=== PATIENT | male | born 1955 | race Hispanic/Latino ===

== ENCOUNTER 2017-05-22 14:34 | Inpatient (IN) | payer BC, OTHER ==
--- NOTE | 2017-05-22 15:03 | ED PDOC ---
HPI: Male Pain Time Seen by Provider: 05/22/17 14:42 Chief Complaint (Nursing): Groin Pain Chief Complaint (Provider): Groin Pain History Per: Patient History/Exam Limitations: no limitations Onset/Duration Of Symptoms: Days (x2 weeks) Current Symptoms Are (Timing): Better Additional Complaint(s): Pedro Forrest is a 61 year old male with previous medical history of diabetes and hypertension, who presents to the emergency department for an evaluation of a bump associated with pain between his testes and rectum ongoing for 2 weeks. Patient stated bump had gotten bigger until bump had drained itself 2-3 days ago. Denied any fever or chills. Of note, patient had a previous pilonidal abscess removed 2 years ago. PMD: Alistair Verduzco MD Past Medical History Reviewed: Historical Data, Nursing Documentation, Vital Signs Vital Signs: Last Vital Signs Temp 98.2 F 05/22/17 14:36 Pulse 83 05/22/17 14:36 Resp 16 05/22/17 14:36 BP 119/64 05/22/17 14:36 Pulse Ox 100 05/22/17 14:36 - Medical History PMH: Diabetes, HTN - Family History Family History: States: Unknown Family Hx - Home Medications Home Medications: Ambulatory Orders Medication Instructions Recorded Atorvastatin [Lipitor] 40 mg PO DAILY 05/22/17 Enalapril Maleate [Vasotec] 2.5 mg PO DAILY 05/22/17 Fluticasone/Salmeterol 250/50 1 puff INH Q12 05/22/17 [Advair Diskus 250/50] Glipizide [Glucotrol] 10 mg PO BID 05/22/17 Insulin Detemir [Levemir] 20 units SQ QAM 05/22/17 MetFORMIN [glucoPHAGE] 1,000 mg PO BID 05/22/17 - Allergies Allergies/Adverse Reactions: Allergies Allergy/AdvReac Type Severity Reaction Status Date / Time No Known Allergies Allergy Verified 05/22/17 14:36 Review of Systems ROS Statement: Except As Marked, All Systems Reviewed And Found Negative Constitutional: Negative for: Fever, Chills Genitourinary Male: Positive for: Other (bump between testes and rectum associated with pain) Physical Exam - Reviewed Nursing Documentation Reviewed: Yes Vital Signs Reviewed: Yes - Physical Exam Appears: Positive for: Well, Non-toxic, No Acute Distress Head Exam: Positive for: ATRAUMATIC, NORMAL INSPECTION, NORMOCEPHALIC Cardiovascular/Chest: Positive for: Regular Rate, Rhythm. Negative for: Chest Non Tender Respiratory: Positive for: Normal Breath Sounds. Negative for: Respiratory Distress Male Genital Exam: Positive for: erythema (and induration of perineum extending to posterior right-sided rectum). Negative for: normal genitalia, lesions (or abscess), other (fluctuation; active drainage) Extremity: Positive for: Normal ROM Neurologic/Psych: Positive for: Alert, hoistman II-XII, Oriented - Laboratory Results Result Diagrams: 05/22/17 15:25 05/22/17 15:25 - ECG O2 Sat by Pulse Oximetry: 100 (RA) Pulse Ox Interpretation: Normal Medical Decision Making Medical Decision Making: Initial Impression: Cellulitis; Pilonidal abscess Initial Plan: * CT pelvis with IV contrast * Labs * Urine dipstick * PTT * PaT * Toradol 15mg IV * Vancomycin 250ml IVPB * Blood culture * Accucheck * Urinalysis Time: 1847 --CT pelvis FINDINGS: Bowel: There is a nonobstructive gas pattern in the pelvis. Appendix and terminal ileum are unremarkable. There is scattered diverticulosis. Appendix: See stomach and bowel Intraperitoneal space: There is no free air or free fluid. Bladder: bladder is partially distended. There is mild bladder wall thickening. Reproductive: Prostate is enlarged. Seminal vesicles are unremarkable. Bones/joints: There are degenerative changes in the osseus structures. There is a small cortical medullary renal lesion in the right ilium difficult to further characterize. There is a bone island in the right pubis. Soft tissues: There is soft tissue swelling in the medial aspect of the right buttock beginning in the efraín-rectal region and extending inferiorly. There is skin thickening and enhancement. There is a small low attenuation lesion, 1.8 x 1.4 cm suggesting early abscess, image 120 series 2. Vasculature: There are vascular calcifications. Lymph nodes: There is no pathologic adenopathy. IMPRESSION: Medial right buttock and efraín-rectal inflammation with small early abscess Scribe Attestation: Documented by Abigail Batista, acting as a scribe for Sumaya Lamb MD Provider Scribe Attestation: All medical record entries made by the Scribe were at my direction and personally dictated by me. I have reviewed the chart and agree that the record accurately reflects my personal performance of the history, physical exam, medical decision making, and the department course for this patient. I have also personally directed, reviewed, and agree with the discharge instructions and disposition. Disposition - Clinical Impression Clinical Impression: Perirectal cellulitis, Perirectal cellulitis, Perirectal abscess - Patient ED Disposition Is Patient to be Admitted: Yes - Disposition Disposition Time: 18:54 ( ) Condition: STABLE - Pt Status Changed To: Hospital Disposition Of: Inpatient - Admit Certification Admit to Inpatient:: After my assessment, the patient will require hospitalization for at least two midnights. This is because of the severity of symptoms shown, intensity of services needed, and/or the medical risk in this patient being treated as an outpatient. - POA Present On Arrival: Poor Glycemic Control
[2017-05-22] MEDS ORDERED: Vancomycin 1 g Inj ONE (15:33)
[2017-05-22 15:40] LABS: BASO # 0.1 K/uL (0.0-0.2); BASO % 0.4 % (0.0-2.0); EOS # 0.2 K/uL (0.0-0.7); HEMATOCRIT 40.7 % (35.0-51.0); LYMPH # 1.7 K/uL (1.0-4.3); LYMPH % 10.4 % (20.0-40.0); MEAN CELL VOLUME 95.4 fl (80.0-94.0); MEAN CORPUSCULAR HEMOGLOBIN 32.5 pg (27.0-31.0); MEAN CORPUSCULAR HGB CONC 34.1 g/dL (33.0-37.0); MEAN PLATELET VOLUME 7.9 fl (7.2-11.7); MONO # 1.4 K/uL (0.0-0.8); MONO % 8.7 % (0.0-10.0); NEUT % 79.5 % (50.0-75.0); WHITE BLOOD COUNT 16.4 K/uL (4.8-10.8)
[2017-05-22 15:50] LABS: ALB/GLOB RATIO 1.2 (1.0-2.1); ALKALINE PHOSPHATASE 86 U/L (38-126); ALT/SGPT 33 U/L (21-72); AST/SGOT 31 U/L (17-59); BILIRUBIN,TOTAL 0.6 mg/dl (0.2-1.3); BLOOD UREA NITROGEN 14 mg/dl (9-20); CALCIUM 9.2 mg/dL (8.4-10.2); CARBON DIOXIDE 27 mmol/L (22-30); CHLORIDE 101 mmol/L (98-107); GFR AFRICAN-AMERICAN > 60; GLUCOSE,RANDOM 173 mg/dL (75-110); POTASSIUM 4.3 MMOL/L (3.6-5.0); SODIUM 137 mmol/l (132-148); TOTAL PROTEIN 6.9 G/DL (6.3-8.2)
[2017-05-22 15:55] LABS: RBC URINE 4 /hpf (0-3); URINE BILIRUBIN NEGATIVE (NEGATIVE); URINE BLOOD NEGATIVE (NEGATIVE); URINE COLOR AMBER (YELLOW); URINE GLUCOSE (UA) NEG (Normal); URINE KETONE TRACE mg/dL (NEGATIVE); URINE LEUKOCYTE ESTERASE NEG Leu/uL (Negative); URINE PROTEIN 30 mg/dL (NEGATIVE); WBC URINE 1 /hpf (0-5)
[2017-05-22 16:17] LABS: PARTIAL THROMBOPLASTIN TIME 30.4 Seconds (25.6-37.1)
[2017-05-22] MEDS ORDERED: Iohexol 300 100 ML IJ ONE (16:56)
[2017-05-22] MEDS ORDERED: Sodium Chloride 0.9% 50 ML IV ONE (16:56)
[2017-05-22 18:06] LABS: VENOUS BLOOD GAS BASE EXCESS 2.6 mmol/L (0.0-2.0); VENOUS BLOOD GAS PCO2 41 mmHg (40-60); VENOUS BLOOD PH 7.43 (7.32-7.43)
[2017-05-22] MEDS ORDERED: Sodium Chloride 0.9% 500 ML IV STA (18:32)
--- NOTE | 2017-05-22 18:48 | CT ---
EXAM: CT Pelvis With Intravenous Contrast EXAM DATE/TIME: 05/22/2017 2:55 PM CLINICAL HISTORY: 61 years old, male; Condition or disease; Abscess; Other: Between testicles and anus; Additional info: Perineal cellulitis/abscess TECHNIQUE: Axial computed tomography images of the pelvis with intravenous contrast. All CT scans at this facility use one or more dose reduction techniques, viz.: automated exposure control; ma/kV adjustment per patient size (including targeted exams where dose is matched to indication; i.e. head); or iterative reconstruction technique. Coronal and sagittal reformatted images were created and reviewed. CONTRAST: 95 mL of omnipaque 300ml administered intravenously. COMPARISON: There are no prior studies for comparison. FINDINGS: Bowel: There is a nonobstructive gas pattern in the pelvis. Appendix and terminal ileum are unremarkable. There is scattered diverticulosis. Appendix: See stomach and bowel Intraperitoneal space: There is no free air or free fluid. Bladder: bladder is partially distended. There is mild bladder wall thickening. Reproductive: Prostate is enlarged. Seminal vesicles are unremarkable. Bones/joints: There are degenerative changes in the osseus structures. There is a small cortical medullary renal lesion in the right ilium difficult to further characterize. There is a bone island in the right pubis. Soft tissues: There is soft tissue swelling in the medial aspect of the right buttock beginning in the efraín-rectal region and extending inferiorly. There is skin thickening and enhancement. There is a small low attenuation lesion, 1.8 x 1.4 cm suggesting early abscess, image 120 series 2. Vasculature: There are vascular calcifications. Lymph nodes: There is no pathologic adenopathy. IMPRESSION: Medial right buttock and efraín-rectal inflammation with small early abscess Additional findings as described above.
[2017-05-22] MEDS ORDERED: Piperacillin/Tazobact 3.375 GM in Sodium Chloride 0.9% 100 ML IVPB STA (19:37)
[2017-05-22] MEDS ORDERED: Piperacillin/Tazobact 3.375 gm Inj IVPB ONE (19:47)
--- NOTE | 2017-05-22 21:19 | CP.PCM.CON ---
<Mathieu Noel - Last Filed: 05/22/17 21:17> History of Present Illness - History of Present Illness History of Present Illness: Gen Sx: Dr Overton Pt is a 61M with PMH of HTN and DM. Pt presents to ED with perineal pain x 2 weeks. Pt states pain started off as a small bump but got progressively larger over time. Several days ago it began to drain purulent drainage, but that has since subsided. Pt remains uncomfortable and came to the ED seeking treatment. PMH: HTN, DM PSH: pilonidal excision, lumbar fusion Review of Systems - Review of Systems All systems: reviewed and no additional remarkable complaints except (as per hpi ) Past Patient History - Past Social History Smoking Status: Heavy Smoker > 10 Cigarettes Daily - CARDIAC Hx Cardiac Disorders: Yes - PULMONARY Hx Respiratory Disorders: Yes - ENDOCRINE/METABOLIC Hx Endocrine Disorders: Yes - MUSCULOSKELETAL/RHEUMATOLOGICAL Hx Musculoskeletal Disorders: Yes - PSYCHIATRIC Hx Substance Use: No - SURGICAL HISTORY Hx Coronary Artery Bypass Graft: Yes Other/Comment: Back sx - ANESTHESIA Hx Anesthesia: Yes Meds Allergies/Adverse Reactions: Allergies Allergy/AdvReac Type Severity Reaction Status Date / Time No Known Allergies Allergy Verified 05/22/17 14:36 - Medications Medications: Current Medications Sodium Chloride (Sodium Chloride 0.9%) 1,000 mls @ 100 mls/hr IV .Q10H [facility] Stop: 05/23/17 21:14 Piperacillin Sod/Tazobactam (Sod 3.375 gm/ Sodium Chloride) 100 mls @ 100 mls/ hr IVPB Q12 [facility] Physical Exam - Constitutional Appears: Non-toxic, No Acute Distress - ENT Exam ENT Exam: Mucous Membranes Dry - Respiratory Exam Respiratory Exam: absent: Accessory Muscle Use, Respiratory Distress - Cardiovascular Exam Cardiovascular Exam: REGULAR RHYTHM. absent: Tachycardia - Rectal Exam Rectal Exam: absent: Hemorrhoids Additional comments: 2x3 cm indurated region in perineal area - no fluctuance noted, no abscess noted on CT - Neurological Exam Neurological exam: Alert, Oriented x3 Results - Vital Signs Recent Vital Signs: Last Vital Signs Temp 98.2 F 05/22/17 20:14 Pulse 82 05/22/17 20:14 Resp 16 05/22/17 20:14 BP 116/62 05/22/17 20:14 Pulse Ox 100 05/22/17 20:08 - Labs Result Diagrams: 05/22/17 15:25 05/22/17 15:25 Assessment & Plan - Assessment and Plan (Free Text) Assessment: 61M with perineal abscess vs cellulitis Plan: accu-checks ACHS NPO @ [place] - possible OR in AM for exam under anesthesia w/ possible I&D Zosyn IV fluids further mgmt per primary team d/w Dr Tian Noel, PGY3 <John Mcbride - Last Filed: 05/23/17 10:54> History of Present Illness - History of Present Illness History of Present Illness: Patient was seen and examined at the bedside. Agree with resident's note above. Meds - Medications Medications: Current Medications Acetaminophen (Tylenol 325mg Tab) 650 mg PO Q4 PRN PRN Reason: Fever >100.4 F Albuterol/Ipratropium (Duoneb 3 Mg/0.5 Mg (3 Ml) Ud) 3 ml INH RQ4 PRN PRN Reason: Shortness of Breath Atorvastatin Calcium (Lipitor) 40 mg PO HS [facility] Enalapril Maleate (Vasotec) 2.5 mg PO DAILY [facility] Last Admin: 05/23/17 09:19 Dose: Not Given Glipizide (Glucotrol) 10 mg PO BID [facility] Last Admin: 05/23/17 09:19 Dose: Not Given Sodium Chloride (Sodium Chloride 0.9%) 1,000 mls @ 100 mls/hr IV .Q10H [facility] Stop: 05/23/17 21:14 Last Admin: 05/23/17 10:39 Dose: 100 mls/hr Piperacillin Sod/Tazobactam (Sod 3.375 gm/ Sodium Chloride) 100 mls @ 100 mls/ hr IVPB Q8H [facility] Last Admin: 05/23/17 06:03 Dose: 100 mls/hr Vancomycin HCl 1 gm/ Sodium (Chloride) 250 mls @ 125 mls/hr IVPB Q12 [facility] Last Admin: 05/23/17 08:55 Dose: 125 mls/hr Insulin Detemir (Levemir) 20 units SC QAM [facility] Last Admin: 05/23/17 10:36 Dose: 20 units Insulin Human Regular (Humulin R) 0 units SC ACHS [facility] PRN Reason: Protocol Last Admin: 05/23/17 08:51 Dose: Not Given Metformin HCl (Glucophage) 1,000 mg PO BID [facility] Last Admin: 05/23/17 09:19 Dose: Not Given Morphine Sulfate (Morphine) 2 mg IVP Q4 PRN PRN Reason: Pain, moderate (4-7) Fluticasone/Salmeterol (Advair Diskus 250/50) 1 puff INH Q12 [facility] Last Admin: 05/23/17 08:56 Dose: 1 puff Results - Vital Signs Recent Vital Signs: Last Vital Signs Temp 98.9 F 05/23/17 07:39 Pulse 58 L 05/23/17 07:39 Resp 17 05/23/17 07:39 BP 122/53 L 05/23/17 07:39 Pulse Ox 97 05/23/17 07:39 - Labs Result Diagrams: 05/23/17 04:35 05/23/17 04:35 Labs: Laboratory Results - last 24 hr 05/22/17 05/23/17 05/23/17 21:37 04:35 04:35 WBC 12.1 H RBC 4.16 L Hgb 13.7 Hct 40.4 MCV 97.3 H MCH 32.9 H MCHC 33.8 RDW 13.1 Plt Count 269 MPV 8.2 Neut % (Auto) 72.2 Lymph % (Auto) 14.9 L Sac % (Auto) 8.8 Eos % (Auto) 3.4 Baso % (Auto) 0.7 Neut # 8.7 H Lymph # 1.8 Sac # 1.1 H Eos # 0.4 Baso # 0.1 Sodium 139 Potassium 4.3 Chloride 107 Carbon Dioxide 25 Anion Gap 11 BUN 14 Creatinine 0.8 Est GFR ( Amer) > 60 Est GFR (Non-Af Amer) > 60 POC Glucose (mg/dL) 180 H Random Glucose 159 H Calcium 8.6 Total Bilirubin 0.6 AST 22 ALT 30 Alkaline Phosphatase 80 Total Protein 6.5 Albumin 3.6 Globulin 2.8 Albumin/Globulin Ratio 1.3 05/23/17 05:22 WBC RBC Hgb Hct MCV MCH MCHC RDW Plt Count MPV Neut % (Auto) Lymph % (Auto) Sac % (Auto) Eos % (Auto) Baso % (Auto) Neut # Lymph # Sac # Eos # Baso # Sodium Potassium Chloride Carbon Dioxide Anion Gap BUN Creatinine Est GFR ( Amer) Est GFR (Non-Af Amer) POC Glucose (mg/dL) 169 H Random Glucose Calcium Total Bilirubin AST ALT Alkaline Phosphatase Total Protein Albumin Globulin Albumin/Globulin Ratio - Imaging and Cardiology CT scan - pelvis Status: Image reviewed by me, Report reviewed by me Assessment & Plan - Assessment and Plan (Free Text) Plan: - Start diabetic diet - Pain control - Continue antibiotics - No general surgery intervention at present time
[2017-05-22] MEDS: Insulin Regular 100 units/ml SC SCH (22:00)
[2017-05-22] MEDS: Sodium Chloride 0.9% 1,000 ML IV SCH (22:28)
[2017-05-23 06:09] LABS: BASO # 0.1 K/uL (0.0-0.2); BASO % 0.7 % (0.0-2.0); EOS # 0.4 K/uL (0.0-0.7); EOS % 3.4 % (0.0-4.0); HEMATOCRIT 40.4 % (35.0-51.0); LYMPH # 1.8 K/uL (1.0-4.3); LYMPH % 14.9 % (20.0-40.0); MEAN CELL VOLUME 97.3 fl (80.0-94.0); MEAN CORPUSCULAR HEMOGLOBIN 32.9 pg (27.0-31.0); MEAN CORPUSCULAR HGB CONC 33.8 g/dL (33.0-37.0); MEAN PLATELET VOLUME 8.2 fl (7.2-11.7); MONO # 1.1 K/uL (0.0-0.8); MONO % 8.8 % (0.0-10.0); NEUT # 8.7 K/uL (1.8-7.0); NEUT % 72.2 % (50.0-75.0); NRBC % 0.1 % (0.0-0.0); RED CELL DISTRIBUTION WIDTH 13.1 % (11.5-14.5); WHITE BLOOD COUNT 12.1 K/uL (4.8-10.8)
[2017-05-23 06:12] LABS: ALB/GLOB RATIO 1.3 (1.0-2.1); ALKALINE PHOSPHATASE 80 U/L (38-126); ALT/SGPT 30 U/L (21-72); AST/SGOT 22 U/L (17-59); BILIRUBIN,TOTAL 0.6 mg/dl (0.2-1.3); BLOOD UREA NITROGEN 14 mg/dl (9-20); CALCIUM 8.6 mg/dL (8.4-10.2); CARBON DIOXIDE 25 mmol/L (22-30); CHLORIDE 107 mmol/L (98-107); GFR AFRICAN-AMERICAN > 60; GLUCOSE,RANDOM 159 mg/dL (75-110); POTASSIUM 4.3 MMOL/L (3.6-5.0); SODIUM 139 mmol/l (132-148); TOTAL PROTEIN 6.5 G/DL (6.3-8.2)
[2017-05-23] MEDS ORDERED: Piperacillin/Tazobact 3.375 GM in Sodium Chloride 0.9% 100 ML IVPB SCH (07:00)
[2017-05-23 07:39] VITALS: TEMP 98.9
--- NOTE | 2017-05-23 08:16 | CP.PCM.HP ---
History of Present Illness - History of Present Illness History of Present Illness: pt admitted for perirectal abscess, c/o pain x 1-2 wks to that area and started w/ purulent dc. ct confirms abscess. per surgery for ID w/ anesthesia today. bw wnl except elev wbc. imaging reviewed. ekg reviewed-cardio for clearance pt is wheezing, states w/ his copd always wheezes in am but when he gets moving feels better. Present on Admission - Present on Admission Any Indicators Present on Admission: Yes History of Uncontrolled Diabetes: Yes Review of Systems - Integumentary Integumentary: As Per HPI, Erythema Past Patient History - Past Medical History & Family History Past Medical History?: Yes - Past Social History Smoking Status: Heavy Smoker > 10 Cigarettes Daily - CARDIAC Hx Cardiac Disorders: Yes - PULMONARY Hx Respiratory Disorders: Yes - NEUROLOGICAL Hx Neurological Disorder: No - HEENT Hx HEENT Problems: No - RENAL Hx Chronic Kidney Disease: No - ENDOCRINE/METABOLIC Hx Endocrine Disorders: Yes - HEMATOLOGICAL/ONCOLOGICAL Hx Blood Disorders: No - INTEGUMENTARY Hx Dermatological Problems: No - MUSCULOSKELETAL/RHEUMATOLOGICAL Hx Musculoskeletal Disorders: Yes - GASTROINTESTINAL Hx Gastrointestinal Disorders: No - GENITOURINARY/GYNECOLOGICAL Hx Genitourinary Disorders: No - PSYCHIATRIC Hx Substance Use: No - SURGICAL HISTORY Hx Coronary Artery Bypass Graft: Yes Other/Comment: Back sx - ANESTHESIA Hx Anesthesia: Yes Meds Allergies/Adverse Reactions: Allergies Allergy/AdvReac Type Severity Reaction Status Date / Time No Known Allergies Allergy Verified 05/22/17 14:36 Physical Exam - Constitutional Appears: Well, Non-toxic, No Acute Distress - Head Exam Head Exam: ATRAUMATIC, NORMAL INSPECTION, NORMOCEPHALIC - Eye Exam Eye Exam: EOMI, Normal appearance, PERRL Pupil Exam: NORMAL ACCOMODATION, PERRL - ENT Exam ENT Exam: Mucous Membranes Moist, Normal Exam - Neck Exam Neck exam: Positive for: Normal Inspection - Respiratory Exam Respiratory Exam: Wheezes, NORMAL BREATHING PATTERN Additional comments: moderate air entry, cleared w/ coughing - Cardiovascular Exam Cardiovascular Exam: REGULAR RHYTHM, RRR, +S1, +S2 - GI/Abdominal Exam GI & Abdominal Exam: Normal Bowel Sounds, Soft. absent: Tenderness - Extremities Exam Extremities exam: Positive for: full ROM, normal capillary refill, normal inspection, pedal pulses present - Back Exam Back exam: NORMAL INSPECTION - Neurological Exam Neurological exam: Alert, CN II-XII Intact, Normal Gait, Oriented x3, Reflexes Normal - Psychiatric Exam Psychiatric exam: Normal Affect, Normal Mood - Skin Skin Exam: Dry, Intact, Normal Color, Warm Results - Vital Signs Recent Vital Signs: Last Vital Signs Temp 98.9 F 05/23/17 07:39 Pulse 58 L 05/23/17 07:39 Resp 17 05/23/17 07:39 BP 122/53 L 05/23/17 07:39 Pulse Ox 97 05/23/17 07:39 - Labs Result Diagrams: 05/23/17 04:35 05/23/17 04:35 Labs: Laboratory Results - last 24 hr 05/22/17 05/23/17 05/23/17 21:37 04:35 04:35 WBC 12.1 H RBC 4.16 L Hgb 13.7 Hct 40.4 MCV 97.3 H MCH 32.9 H MCHC 33.8 RDW 13.1 Plt Count 269 MPV 8.2 Neut % (Auto) 72.2 Lymph % (Auto) 14.9 L [place] % (Auto) 8.8 Eos % (Auto) 3.4 Baso % (Auto) 0.7 Neut # 8.7 H Lymph # 1.8 [place] # 1.1 H Eos # 0.4 Baso # 0.1 Sodium 139 Potassium 4.3 Chloride 107 Carbon Dioxide 25 Anion Gap 11 BUN 14 Creatinine 0.8 Est GFR ( Amer) > 60 Est GFR (Non-Af Amer) > 60 POC Glucose (mg/dL) 180 H Random Glucose 159 H Calcium 8.6 Total Bilirubin 0.6 AST 22 ALT 30 Alkaline Phosphatase 80 Total Protein 6.5 Albumin 3.6 Globulin 2.8 Albumin/Globulin Ratio 1.3 05/23/17 05:22 WBC RBC Hgb Hct MCV MCH MCHC RDW Plt Count MPV Neut % (Auto) Lymph % (Auto) [place] % (Auto) Eos % (Auto) Baso % (Auto) Neut # Lymph # [place] # Eos # Baso # Sodium Potassium Chloride Carbon Dioxide Anion Gap BUN Creatinine Est GFR ( Amer) Est GFR (Non-Af Amer) POC Glucose (mg/dL) 169 H Random Glucose Calcium Total Bilirubin AST ALT Alkaline Phosphatase Total Protein Albumin Globulin Albumin/Globulin Ratio Assessment & Plan (1) Perirectal abscess Assessment and Plan: vanco/zosyn surgery for id pain control fever control Status: Acute (2) Diabetes type 2, uncontrolled Assessment and Plan: fsbg, home meds Status: Acute (3) CAD (coronary artery disease) Assessment and Plan: cardio clearance for anesthesia home meds Status: Acute (4) DVT prophylaxis Assessment and Plan: scd nad a ehose lovneox post op Status: Acute (5) COPD (chronic obstructive pulmonary disease) Assessment and Plan: nebs steroids prn pulm prn Status: Acute Decision To Admit - Pt Status Changed To: Hospital Disposition Of: Inpatient - Admit Certification Admit to Inpatient:: After my assessment, the patient will require hospitalization for at least two midnights. This is because of the severity of symptoms shown, intensity of services needed, and/or the medical risk in this patient being treated as an outpatient. - . Bed Request Type: Med/Surg Admitting Physician: Boaz Barr
[2017-05-23] MEDS ORDERED: Albuterol-Ipratrop 3 mg / 0.5 (3 ml) UD INH PRN (08:19)
[2017-05-23] MEDS: Insulin Regular 100 units/ml SC SCH ×2 (08:51→12:03)
[2017-05-23] MEDS: Sodium Chloride 0.9% 1,000 ML IV SCH ×2 (08:52→10:39)
[2017-05-23] MEDS ORDERED: Insulin Detemir 100 Units/ml Inj SC SCH (09:00)
[2017-05-23] MEDS ORDERED: Fluticasone-Salmeterol 250-50mcg Diskus INH SCH (09:00)
[2017-05-23 10:55] VITALS: BP 138/74; PULSE 60; RESP 19; O2SAT 95
--- NOTE | 2017-05-23 10:57 | CP.PCM.PN ---
Subjective - Date & Time of Evaluation Date of Evaluation: 05/23/17 Time of Evaluation: 10:05 - Subjective Subjective: Patient was seen and examined at the bedside. States that efraín-anal pain has improved. Objective - Vital Signs/Intake and Output Vital Signs (last 24 hours): Temp Pulse Resp BP Pulse Ox 98.9 F 58 L 17 122/53 L 97 05/23/17 07:39 05/23/17 07:39 05/23/17 07:39 05/23/17 07:39 05/23/17 07:39 - Medications Medications: Current Medications Acetaminophen (Tylenol 325mg Tab) 650 mg PO Q4 PRN PRN Reason: Fever >100.4 F Albuterol/Ipratropium (Duoneb 3 Mg/0.5 Mg (3 Ml) Ud) 3 ml INH RQ4 PRN PRN Reason: Shortness of Breath Atorvastatin Calcium (Lipitor) 40 mg PO HS [facility] Enalapril Maleate (Vasotec) 2.5 mg PO DAILY [facility] Glipizide (Glucotrol) 10 mg PO BID [facility] Sodium Chloride (Sodium Chloride 0.9%) 1,000 mls @ 100 mls/hr IV .Q10H [facility] Stop: 05/23/17 21:14 Last Admin: 05/23/17 10:39 Dose: 100 mls/hr Piperacillin Sod/Tazobactam (Sod 3.375 gm/ Sodium Chloride) 100 mls @ 100 mls/ hr IVPB Q8H [facility] Last Admin: 05/23/17 06:03 Dose: 100 mls/hr Vancomycin HCl 1 gm/ Sodium (Chloride) 250 mls @ 125 mls/hr IVPB Q12 [facility] Last Admin: 05/23/17 08:55 Dose: 125 mls/hr Insulin Detemir (Levemir) 20 units SC QAM [facility] Last Admin: 05/23/17 10:36 Dose: 20 units Insulin Human Regular (Humulin R) 0 units SC ACHS [facility] PRN Reason: Protocol Last Admin: 05/23/17 08:51 Dose: Not Given Metformin HCl (Glucophage) 1,000 mg PO BID [facility] Morphine Sulfate (Morphine) 2 mg IVP Q4 PRN PRN Reason: Pain, moderate (4-7) Fluticasone/Salmeterol (Advair Diskus 250/50) 1 puff INH Q12 [facility] Last Admin: 05/23/17 08:56 Dose: 1 puff - Labs Labs: 05/23/17 04:35 05/23/17 04:35 PT 12.8 Seconds (9.8-13.1) 05/22/17 15:25 INR 1.2 (0.9-1.2) 05/22/17 15:25 APTT 30.4 Seconds (25.6-37.1) 05/22/17 15:25 - Constitutional Appears: Well, Non-toxic, No Acute Distress - Head Exam Head Exam: ATRAUMATIC, NORMAL INSPECTION, NORMOCEPHALIC - Eye Exam Eye Exam: EOMI, Normal appearance, PERRL Pupil Exam: NORMAL ACCOMODATION, PERRL - ENT Exam ENT Exam: Mucous Membranes Moist, Normal Exam - Neck Exam Neck Exam: Full ROM, Normal Inspection - Respiratory Exam Respiratory Exam: NORMAL BREATHING PATTERN - Cardiovascular Exam Cardiovascular Exam: +S1, +S2 - GI/Abdominal Exam GI & Abdominal Exam: Soft, Normal Bowel Sounds Additional comments: NT, mildly distended - Rectal Exam Additional comments: small area of induration to the right side of perinium, very mild erythema, non tender, no fluctuance - Extremities Exam Extremities Exam: Full ROM, Normal Inspection - Neurological Exam Neurological Exam: Alert, Awake, Oriented x3 - Psychiatric Exam Psychiatric exam: Normal Affect, Normal Mood - Skin Skin Exam: Dry, Intact, Normal Color, Warm Assessment and Plan - Assessment and Plan (Free Text) Assessment: 61 y.o. with cellulitis of the right perineal area Plan: - Diabetic diet - pain control - Continue antibiotics - Clear for discharge from the surgical stand point
--- NOTE | 2017-05-23 13:59 | CP.PCM.DIS ---
Provider - Provider Date of Admission: 05/22/17 18:54 Attending physician: Boaz Barr MD Time Spent in preparation of Discharge (in minutes): 15 Diagnosis - Discharge Diagnosis (1) Perirectal abscess Status: Acute (2) Diabetes type 2, uncontrolled Status: Acute (3) CAD (coronary artery disease) Status: Acute (4) DVT prophylaxis Status: Acute (5) COPD (chronic obstructive pulmonary disease) Status: Acute Hospital Course - Lab Results Lab Results: Most Recent Lab Values WBC 12.1 K/uL (4.8-10.8) H 05/23/17 04:35 RBC 4.16 Mil/uL (4.40-5.90) L 05/23/17 04:35 Hgb 13.7 g/dL (12.0-18.0) 05/23/17 04:35 Hct 40.4 % (35.0-51.0) 05/23/17 04:35 MCV 97.3 fl (80.0-94.0) H 05/23/17 04:35 MCH 32.9 pg (27.0-31.0) H 05/23/17 04:35 MCHC 33.8 g/dL (33.0-37.0) 05/23/17 04:35 RDW 13.1 % (11.5-14.5) 05/23/17 04:35 Plt Count 269 K/uL (130-400) 05/23/17 04:35 MPV 8.2 fl (7.2-11.7) 05/23/17 04:35 Neut % (Auto) 72.2 % (50.0-75.0) 05/23/17 04:35 Lymph % (Auto) 14.9 % (20.0-40.0) L 05/23/17 04:35 [place] % (Auto) 8.8 % (0.0-10.0) 05/23/17 04:35 Eos % (Auto) 3.4 % (0.0-4.0) 05/23/17 04:35 Baso % (Auto) 0.7 % (0.0-2.0) 05/23/17 04:35 Neut # 8.7 K/uL (1.8-7.0) H 05/23/17 04:35 Lymph # 1.8 K/uL (1.0-4.3) 05/23/17 04:35 [place] # 1.1 K/uL (0.0-0.8) H 05/23/17 04:35 Eos # 0.4 K/uL (0.0-0.7) 05/23/17 04:35 Baso # 0.1 K/uL (0.0-0.2) 05/23/17 04:35 PT 12.8 Seconds (9.8-13.1) 05/22/17 15:25 INR 1.2 (0.9-1.2) 05/22/17 15:25 APTT 30.4 Seconds (25.6-37.1) 05/22/17 15:25 pO2 44 mm/Hg (30-55) 05/22/17 18:03 VBG pH 7.43 (7.32-7.43) 05/22/17 18:03 VBG pCO2 41 mmHg (40-60) 05/22/17 18:03 VBG HCO3 26.5 mmol/L 05/22/17 18:03 VBG Total CO2 28.5 mmol/L (22-28) H 05/22/17 18:03 VBG O2 Sat (Calc) 88.7 % (40-65) H 05/22/17 18:03 VBG Base Excess 2.6 mmol/L (0.0-2.0) H 05/22/17 18:03 VBG Potassium 4.0 mmol/L (3.6-5.2) 05/22/17 18:03 Sodium 134.0 mmol/L (132-148) 05/22/17 18:03 Chloride 102.0 mmol/L (98-107) 05/22/17 18:03 Glucose 157 mg/dL (75-110) H 05/22/17 18:03 Lactate 1.0 mmol/L (0.7-2.1) 05/22/17 18:03 FiO2 21.0 % 05/22/17 18:03 Sodium 139 mmol/l (132-148) 05/23/17 04:35 Potassium 4.3 MMOL/L (3.6-5.0) 05/23/17 04:35 Chloride 107 mmol/L (98-107) 05/23/17 04:35 Carbon Dioxide 25 mmol/L (22-30) 05/23/17 04:35 Anion Gap 11 (10-20) 05/23/17 04:35 BUN 14 mg/dl (9-20) 05/23/17 04:35 Creatinine 0.8 mg/dL (0.8-1.5) 05/23/17 04:35 Est GFR ( Amer) > 60 05/23/17 04:35 Est GFR (Non-Af Amer) > 60 05/23/17 04:35 POC Glucose (mg/dL) 156 mg/dL (65-110) H 05/23/17 10:56 Random Glucose 159 mg/dL (75-110) H 05/23/17 04:35 Calcium 8.6 mg/dL (8.4-10.2) 05/23/17 04:35 Total Bilirubin 0.6 mg/dl (0.2-1.3) 05/23/17 04:35 AST 22 U/L (17-59) 05/23/17 04:35 ALT 30 U/L (21-72) 05/23/17 04:35 Alkaline Phosphatase 80 U/L (38-126) 05/23/17 04:35 Total Protein 6.5 G/DL (6.3-8.2) 05/23/17 04:35 Albumin 3.6 g/dL (3.5-5.0) 05/23/17 04:35 Globulin 2.8 gm/dL (2.2-3.9) 05/23/17 04:35 Albumin/Globulin Ratio 1.3 (1.0-2.1) 05/23/17 04:35 Venous Blood Potassium 4.0 mmol/L (3.6-5.2) 05/22/17 18:03 Urine Color Mitra (YELLOW) 05/22/17 15:25 Urine Clarity Slighty-cloudy (Clear) 05/22/17 15:25 Urine pH 5.0 (5.0-8.0) 05/22/17 15:25 Ur Specific Thomas 1.021 (1.003-1.030) 05/22/17 15:25 Urine Protein 30 mg/dL (NEGATIVE) 05/22/17 15:25 Urine Glucose (UA) Neg mg/dL (Normal) 05/22/17 15:25 Urine Ketones Trace mg/dL (NEGATIVE) 05/22/17 15:25 Urine Blood Negative (NEGATIVE) 05/22/17 15:25 Urine Nitrate Negative (NEGATIVE) 05/22/17 15:25 Urine Bilirubin Negative (NEGATIVE) 05/22/17 15:25 Urine Urobilinogen 2.0 mg/dL (0.2-1.0) 05/22/17 15:25 Ur Leukocyte Esterase Neg Mansi/uL (Negative) 05/22/17 15:25 Urine RBC (Auto) 4 /hpf (0-3) H 05/22/17 15:25 Urine Microscopic WBC 1 /hpf (0-5) 05/22/17 15:25 Discharge Exam - Head Exam Head Exam: ATRAUMATIC, NORMAL INSPECTION, NORMOCEPHALIC Discharge Plan - Discharge Medications Prescriptions: Sulfamethoxazole/Trimethoprim [Bactrim DS 800 mg-160 mg] 1 tab PO BID #14 tab - Follow Up Plan Condition: STABLE Disposition: HOME/ ROUTINE Instructions: Sitz Bath (DC), Rectal Abscess (DC) Additional Instructions: cleared by surgery for dc. changed to obs. rx for bactrim sitz baths f/u rmg 2 days, surgery 1 wk. rted prn, final dx-perirectal abscess, dm2, copd
--- NOTE | 2017-05-24 11:27 | CARD ---
APPROVED REPORT EKG Measurement Heart [id number] OR [id number] [id number] <Conclusion> Sinus bradycardia with 1st degree AV block Right bundle branch block Anterior infarct, age undetermined Abnormal ECG
== END 2017-05-23 12:56 | disposition home or self-care (01) | DRG 395 ==
LOC: H.ER 14:34 → H.ERHOLD 18:54 → H.MEDSURG1 21:17
PROVIDERS: ADMIT Family Medicine; ATTEND Family Medicine
DX: K61.1 Rectal abscess (principal); E11.65 Type 2 diabetes mellitus with hyperglycemia; I10 Essential (primary) hypertension; I25.10 Atherosclerotic heart disease of native coronary artery without angina pectoris; J44.9 Chronic obstructive pulmonary disease, unspecified